=== PATIENT | male | born 1975 | race Caucasian/White ===

== ENCOUNTER 2024-03-11 09:05 | Outpatient (OUT) | payer OTHER, SELFPAY ==
[2024-03-11 10:21] LABS: Basophils Absolute Auto 0.1 10^3/uL (0.0-0.1); Basophils Percent Auto 0.7 % (0.2-2.0); Eosinophils Absolute Auto 0.1 10^3/uL (0.0-0.7); Eosinophils Percent Auto 1.8 % (0.9-7.0); Hematocrit 43.3 % (42.0-54.0); Hemoglobin 14.9 g/dL (14.0-18.0); Immature Granulocytes Abs Auto 0.01 10^3/uL (0.00-0.03); Immature Granulocytes Pct Auto 0.1 % (0.0-0.5); Lymphocytes Absolute Auto 2.9 10^3/uL (1.2-3.8); Lymphocytes Percent Auto 40.7 % (20.5-60.0); Mean Corpuscular HGB Conc 34.4 g/dL (29.9-35.2); Mean Corpuscular Hemoglobin 30.5 pg (25.9-34.0); Mean Corpuscular Volume 88.7 fL (80.0-94.0); Mean Platelet Volume 8.8 fL (9.5-13.5); Monocytes Absolute Auto 0.5 10^3/uL (0.3-0.8); Monocytes Percent Auto 6.7 % (1.7-12.0); Neutrophils Absolute Auto 3.5 10^3/uL (1.4-6.5); Platelet Count 238 10^3/uL (150-450); Red Blood Count 4.88 10^6/uL (4.70-6.10); Red Cell Distribution Width 12.2 % (11.0-15.0)
[2024-03-11 11:04] LABS: Erythrocyte Sedimentation Rate 2 mm/hr (<=20)
[2024-03-11 11:10] LABS: Creatinine Urine Random 181.81 mg/dL (20.00-300.00); Microalbum Creatinine Ratio Ur 7.1 mg/g (0.0-29.9); Microalbumin Urine Random <1.3 mg/dL (<=30.0)
[2024-03-11 12:01] LABS: Prostate Specific Antigen Dx 0.82 ng/mL (<=4.00)
[2024-03-11 12:35] LABS: Alanine Aminotransferase 56 U/L (16-63); Albumin Globulin Ratio 1.3; Albumin Level 3.9 g/dL (3.4-5.0); Alkaline Phosphatase 62 U/L (46-116); Anion Gap 12.3; Aspartate Amino Transferase 31 U/L (15-37); Bilirubin Total 0.9 mg/dL (0.2-1.0); C Reactive Protein <0.50 mg/dL (<=0.50); Calcium 8.3 mg/dL (8.5-10.1); Carbon Dioxide 27.9 mmol/L (21.0-32.0); Chloride 106 mmol/L (98-107); Chol HDL Ratio 4.3; Cholesterol 176 mg/dL (<=200); Estimated GFR (African America >60 (>=60); Estimated GFR (Non-African Ame >60 (>=60); Globulin 3.1 g/dL; Glucose 97 mg/dL (74-106); HDL Cholesterol 41 mg/dL (40-60); LDL Cholesterol Calculated 126.4 mg/dL; Potassium 4.2 mmol/L (3.5-5.1); Sodium 142 mmol/L (136-145); Triglycerides 43 mg/dL (<=150); Uric Acid 5.4 mg/dL (3.5-7.2); VLDL CHOLESTEROL 8.6 mg/dL
[2024-03-11 12:41] LABS: Bilirubin Urine NEGATIVE (NEGATIVE); Blood Urine NEGATIVE (NEGATIVE); Clarity Urine CLEAR (CLEAR); Color Urine YELLOW (YELLOW); Glucose Urine UA NEGATIVE (NEGATIVE); Ketones Urine NEGATIVE (NEGATIVE); Leukocyte Esterase Urine NEGATIVE (NEGATIVE); Nitrite Urine NEGATIVE (NEGATIVE); Protein Urine NEGATIVE (NEG/TRACE); Specific Gravity Urine >=1.030 (1.005-1.025); Urobilinogen Urine 0.2 EU/dL (0.2-1.0); pH Urine 5.5 (5.0-9.0)
[2024-03-11 13:02] LABS: Bacteria Urine TRACE #/HPF (NONE SEEN); Cast Seen? NONE SEEN #/LPF (NONE SEEN); Crystals Seen? None Seen #/HPF (None Seen); Mucus Urine NONE SEEN (NONE SEEN); RBC Urine 0-2 #/HPF (0-2); Squamous Epithelial Cell Urine RARE #/LPF (NONE/RARE); WBC Urine 0-2 #/HPF (NONE SEEN)
[2024-03-12 08:10] LABS: Rheumatoid Factor (RF) <10.0 IU/mL (<14.0)
[2024-03-13 12:08] LABS: ANA Direct Negative (Negative)
[2024-03-13 13:08] LABS: Anti-CCP Ab, IgG/IgA 5 units (0-19)
== END 2024-03-11 09:06 | disposition home or self-care (01) ==
PROVIDERS: PCP Internal Medicine; Visit Provider Internal Medicine
DX: Z00.00 Encounter for general adult medical examination without abnormal findings (principal); Z12.5 Encounter for screening for malignant neoplasm of prostate; M79.641 Pain in right hand; M79.642 Pain in left hand; I10 Essential (primary) hypertension
CPT/HCPCS: 36415; 80053; 80061; 81001; 82043; 82570; 84153; 84550; 85025; 85652; 86038; 86140; 86200; 86431

== ENCOUNTER 2024-05-08 10:17 | Outpatient (OUT) | payer OTHER, SELFPAY ==
--- OUTSIDE RECORDS SUMMARY | 2024-05-08 10:40 | XMS_ITS | CCD ---
Author Organization [facility] Care Team Providers Care Qa Tester Name Role Phone Heath Russo Attending Provider Nilda Vincent Primary Care Provider [phone] CLAUDINE [place] Consulting Unavailable THOMAS ROMO Admitting Unavailable MADELYN JADE Primary Care Unavailable THOMAS ROMO Attending Unavailable NILDA JOENS Consulting Unavailable HEATH RUSSO Admitting Unavailable NILDA VINCENT Primary Care Unavailable HEATH RUSSO Attending Unavailable HEATH RUSSO Consulting Unavailable NILDA VINCENT Admitting Unavailable NILDA VINCENT Attending Unavailable NILDA VINCENT Consulting Unavailable ANNA MARIE SUMMERS Attending Unavailable JACQUELINE GONSALES Primary Care Unavailable ANNA MARIE SUMMERS Admitting Unavailable MADELYN JADE Consulting Unavailable ANALY BAI Unavailable MD Nilda Vincent Primary Care Provider [phone] MD Lenny Rod Attending Provider NILDA VINCENT Attending Unavailable LNENY DUKE Attending Unavailable CASSANDRA MERINO Referring Unavailable LENNY DUKE Attending Unavailable Lenny Rod Attending Unavailable Nilda Vincent Primary Care Unavailable Lenny Rod Admitting Unavailable Lenny Rod Admitting Unavailable Lenny Rod Attending Unavailable Nilda Vincent Primary Care Unavailable Unavailable Unavailable Unavailable Medications Current Medications Medication Drug Class(es) Dates Sig (Normalized) Sig (Original) acetaminophen 325 mg / HYDROcodone bitartrate 5 mg oral tablet (1 source) Opioid Agonist Start: 03-30-2024 take 1 tablet by mouth every six hours Hydrocodone-Acet aminophen Active 1 TAB PO Q6H 28 7 March 30, 2024 lisinopril 10 mg oral tablet (3 sources) Angiotensin Converting Enzyme Inhibitor Start: 03-18-2020 take 10 mg by mouth once daily in the morning Lisinopril Active 10 MG PO Every morning March 18, 2020 12:00am Problems Active Problems Problem Classification Problem Date Documented Da te Episodic/Chronic Abdominal hernia (1 source) Umbilical hernia with obstruction, without gangrene; Translations: [Umbilical hernia with obstruction, without gangrene] Onset: 03-30-2024 Episodic Adverse effects of medical drugs (1 source) Adverse effect of other qwoa-qsnchz-wblj drugs, initial encounter; Translations: [ADVRS EFF OTH ENKN-NST-SOIX RX INIT] Onset: 11-07-2019 Essential hypertension (1 source) Essential (primary) hypertension; Translations: [ESSENTIAL PRIMARY HYPERTENSION] Onset: 03-29-2020 Chronic Other upper respiratory infections (1 source) Chronic sinusitis, unspecified; Translations: [CHRONIC SINUSITIS UNSPECIFIED] Onset: 11-07-2019 Chronic Residual codes; unclassified (3 sources) Family history of cancer of colon; Translations: [Family history of malignant neoplasm of digestive organs] 09-15-2023 Episodic Residual codes; unclassified (1 source) Family history of malignant neoplasm of digestive organs; Translations: [Family history of colon cancer requiring screening colonoscopy] Episodic Unclassified (1 source) Myalgia, unspecified site; Translations: [MYALGIA UNSPECIFIED SITE] Onset: 11-15-2019 Past or Other Problems Problem Classification Problem Date Documented Da te Episodic/Chronic Genitourinary symptoms and ill-defined conditions (1 source) Nocturia; Translations: [NOCTURIA] Onset: 03-29-2020 Episodic Headache; including migraine (1 source) Headache; Translations: [HEADACHE] Onset: 11-15-2019 Episodic Immunizations and screening for infectious disease (4 sources) Encounter for screening for other viral diseases; Translations: [ENC SCREENING FOR OTH VIRAL DZ] Onset: 03-12-2020 Episodic Malaise and fatigue (1 source) Weakness; Translations: [WEAKNESS] Onset: 11-15-2019 Episodic Other aftercare (1 source) Other mcfp (current) drug therapy; Translations: [OTH FPC CURRENT DRUG THERAPY] Onset: 11-15-2019 Episodic Other upper respiratory disease (4 sources) Nasal congestion; Translations: [NASAL CONGESTION] Onset: 11-12-2019 Episodic Results Test Name Value Interpretation Reference Range [facility] ECG 12 lead ECGon 03-22-2024 ECG 12 lead ECG [facility] [place] [address] Electrocardiograph Report Signed Patient: Pérez Merritt MR#: [id number] 54 : 1975 Acct:[id number] Age/Sex: 49 / M ADM Date: 03/22/24 Loc: PS Room: Type: [facility] Attending Dr: Lenny Rod MD Ordering Provider: Lenny Rod MD Date of Service: 03/22/24 ECG/ECG 12 lead ECG: surgery 03/30/24 Copies to: Test Reason : Blood Pressure : / mmHG Vent. Rate : 069 BPM Atrial Rate : 069 BPM P-R Int : 188 ms QRS Dur : 092 ms QT Int : 388 ms P-R-T Axes : 069 015 038 degrees QTc Int : 415 ms Normal sinus rhythm Normal ECG No previous ECGs available Confirmed by [facility] ([id number] on 03/22/2024 1:30:39 PM Referred By: MELISA ROD Electronically Signed By:ALTON TOUSSAINT MD [facility] Transcribed By: [facility] Signed By Alton Toussaint MD, [facility] 03/22/24 1330 Normal [facility] COVID-19 PCRon 03-14-2020 SARS-CoV-2, DINO Not Detected Normal Not Detected [facility] Comment on above: Result Comment: This test was developed and its performance characteristics determined by [employer]. This test has not been FDA cleared or approved. This test has been authorized by FDA under an Emergency Use Authorization (EUA). This test is only authorized for the duration of time the declaration that circumstances exist justifying the authorization of the emergency use of in vitro diagnostic tests for detection of SARS-CoV-2 virus and/or diagnosis of COVID-19 infection under section 564(b)(1) of the Act, 21 U.S.C. 360bbb-3(b)(1), unless the authorization is terminated or revoked sooner. When diagnostic testing is negative, the possibility of a false negative result should be considered in the context of a patient's recent exposures and the presence of clinical signs and symptoms consistent with COVID-19. An individual without symptoms of COVID-19 and who is not shedding SARS-CoV-2 virus would expect to have a negative (not detected) result in this assay. Performed By: #### C VDPCR #### [facility] [address] [place] [address] Eri Kiera CBC AUTO DIFFon 03-12-2020 Basophils (Bld) [#/Vol] 0.1 103/ul Normal 0.0-0.1 [facility] Comment on above: Performed By: #### M PACHECO #### [facility] [address] [place], [place] [id number] Eri Kiera Basophils/100 WBC (Bld) 0.6 % Normal 0.2-2.0 [facility] Comment on above: Performed By: #### M PACHECO #### [facility] [address] [place], [place] [phone] Eri Kiera Eosinophils (Bld) [#/Vol] 0.1 103/ul Normal 0.0-0.7 [facility] Comment on above: Performed By: #### M PACHECO #### [facility] [address] [place] [address] Eri Kiera Eosinophils/100 WBC (Bld) 1.2 % Normal 0.9-7.0 [facility] Comment on above: Performed By: #### M PACHECO #### [facility] [address] [place] [address] Eri Kiera Erythrocyte distribution width (RBC) [Ratio] 11.9 % Normal 11.0-15.0 [facility] Comment on above: Performed By: #### M PACHECO #### [facility] [address] [place] [address] Eri Kiera Hematocrit (Bld) [Volume fraction] 44.3 % Normal 42.0-54.0 [facility] Comment on above: Performed By: #### M PACHECO #### [facility] [address] [place] [address] Eri Kiera Hemoglobin (Bld) [Mass/Vol] 15.8 g/dL Normal 14.0-18.0 [facility] Comment on above: Performed By: #### M PACHECO #### [facility] [address] [id number] Eri Kiera IG # 0.03 10e3/ul Normal 0.00-0.03 [facility] Comment on above: Performed By: #### M PACHECO #### [facility] [address] [id number] Eri Kiera IG % 0.3 % Normal 0.0-0.5 [facility] Comment on above: Performed By: #### M PACHECO #### [facility] [address] [phone] Eri Kiera Lymphocytes (Bld) [#/Vol] 3.2 103/ul Normal 1.2-3.8 [facility] Comment on above: Performed By: #### M PACHECO #### [facility] [address] [place], [place] [phone] Eri Kiera Lymphocytes/100 WBC (Bld) 33.0 % Normal 20.5-60.0 [facility] Comment on above: Performed By: #### M PACHECO #### [facility] [address] [place], [place] [phone] Eri Kiera MANUAL DIFF REQ NO Normal [facility] Comment on above: Performed By: #### M PACHECO #### [facility] [address] [place], [place] [phone] Eri Kiera MCH (RBC) [Entitic mass] 31.2 pg Normal 25.9-34.0 [facility] Comment on above: Performed By: #### M PACHECO #### [facility] [address] [place], [place] [phone] Eri Kiera MCHC (RBC) [Mass/Vol] 35.7 g/dL Critically high 29.9-35.2 [facility] Comment on above: Performed By: #### M PACHECO #### [facility] [address] [place], [place] [phone] Eri Kiera MCV (RBC) [Entitic vol] 87.4 fL Normal 80.0-94.0 [facility] Comment on above: Performed By: #### M PACHECO #### [facility] [address] [place], [place] [address] Eri Kiera Monocytes (Bld) [#/Vol] 0.7 103/ul Normal 0.3-0.8 [facility] Comment on above: Performed By: #### M PACHECO #### [facility] [address] [place], [place] [address] Eri Kiera Monocytes/100 WBC (Bld) 7.0 % Normal 1.7-12.0 [facility] Comment on above: Performed By: #### M PACHECO #### [facility] [address] [place], [place] [address] Eri Kiera Neutrophils (Bld) [#/Vol] 5.6 103/ul Normal 1.4-6.5 [facility] Comment on above: Performed By: #### M PACHECO #### [facility] [address] [place] [address] Eri Kiera Neutrophils/100 WBC (Bld) 57.9 % Normal 43.0-75.0 [facility] Comment on above: Performed By: #### M PACHECO #### [facility] [address] [place], [place] [address] Eri Kiera Platelet mean volume (Bld) [Entitic vol] 8.6 fL Critically low 9.5-13.5 [facility] Comment on above: Performed By: #### M PACHECO #### [facility] [address] [place] [address] Eri Kiera Platelets (Bld) [#/Vol] 237 103/ul Normal 150-450 [facility] Comment on above: Performed By: #### M PACHECO #### [facility] [address] [place], [place] [address] Eri Kiera RBC (Bld) [#/Vol] 5.07 106/ul Normal 4.70-6.10 [facility] Comment on above: Performed By: #### M PACHECO #### [facility] [address] [place], [place] [address] Eri Kiera WBC (Bld) [#/Vol] 9.8 103/ul Normal 4.0-11.0 [facility] Comment on above: Performed By: #### M PACHECO #### [facility] [address] [place], [place] [address] Eri Kiera LIPID PROFILEon 03-12-2020 CHOL-HDL RATIO NORM SEE BELOW Normal [facility] Comment on above: Result Comment: 3.3 - 4.4 LOW RISK 4.4 - 7.1 AVERAGE RISK 7.1 - 11.0 MODERATE RISK >11.0 HIGH RISK Performed By: #### P SAD, CMP, LIPID #### [facility] [address] [phone] Eri Kiera Cholesterol [Mass/Vol] 176 mg/dL Normal <=200 [facility] Comment on above: Performed By: #### P SAD, CMP, LIPID #### [facility] [address] [phone] Eri Kiera Cholesterol in HDL [Mass/Vol] 33 mg/dL Normal [facility] Comment on above: Performed By: #### P SAD, CMP, LIPID #### [facility] [address] [phone] Eri Kiera Cholesterol in HDL [Mass/Vol] > or = 60 mg/dl - LOW CARDIOVASCULAR RISK <40 mg/dl - HIGH CARDIOVASCULAR RISK Normal [facility] Comment on above: Performed By: #### P SAD, CMP, LIPID #### [facility] [address] [place], [place] [address] Eri Kiera Cholesterol in LDL [Mass/Vol] 105.8 mg/dL Normal [facility] Comment on above: Performed By: #### P SAD, CMP, LIPID #### [facility] [address] [place], [place] [address] Eri Kiera Cholesterol in LDL [Mass/Vol] SEE BELOW Normal [facility] Comment on above: Result Comment: <100 mg/dl OPTIMAL 100 - 129 mg/dl NEAR OR ABOVE OPTIMAL 130 - 159 mg/dl BORDERLINE HIGH 160 - 189 mg/dl HIGH >190 mg/dl VERY HIGH Performed By: #### P SAD, CMP, LIPID #### [facility] [address] [phone] Eri Kiera Cholesterol.total/ Cholesterol in HDL [Mass ratio] 5.3 {ratio} Normal [facility] Comment on above: Performed By: #### P SAD, CMP, LIPID #### [facility] [address] [phone] Eri Qureshi Triglyceride [Mass/Vol] 186 mg/dL Critically high <=150 [facility] Comment on above: Performed By: #### P SAD, CMP, LIPID #### [facility] [address] [address] Eri Qureshi VLDL CALC 37.2 mg/dL Normal [facility] Comment on above: Performed By: #### P SAD, CMP, LIPID #### [facility] [address] [phone] Eri Qureshi MICROALB CREAT RATIO RANDOMo n 03-12-2020 mALB <1.3 Normal <=30.0 [facility] Comment on above: Performed By: #### M CRR #### [facility] [address] [place] [address] Eri Qureshi MALB CR RATIO 6.3 MG/G Normal 0.0-29.9 [facility] Comment on above: Performed By: #### M CRR #### [facility] [address] [place] [address] Eri Qureshi MALB CR RATIO RANGE SEE BELOW Normal [facility] Comment on above: Result Comment: NO M ICROALBUMIN 0-29 MG/G CLINICAL MICROALBUMINURIA 30-300 MG/G MACROALBUMINURIA >300 MG/G Performed By: #### M CRR #### [facility] [address] [place] [address] Eri Qureshi URINE CREAT 206.91 mg/dL Normal 20.00-300.00 [facility] Comment on above: Performed By: #### M CRR #### [facility] [address] [place], [place] [phone] Eri Jiménezen PROF 14(COMP METB)on 020 Albumin [Mass/Vol] 5.0 g/dL Normal 3.5-5.0 [facility] Comment on above: Performed By: #### P SAD, CMP, LIPID #### [facility] [address] [place], [place] [address] Eri Kiera Albumin/Globulin [Mass ratio] 1.5 {ratio} Normal [facility] Comment on above: Performed By: #### P SAD, CMP, LIPID #### [facility] [address] [place], [place] [address] Eri Kiera ALP [Catalytic activity/Vol] 57 U/L Normal 38-126 [facility] Comment on above: Performed By: #### P SAD, CMP, LIPID #### [facility] [address] [phone] Eri Kiera ALT [Catalytic activity/Vol] 60 U/L Normal 21-72 [facility] Comment on above: Performed By: #### P SAD, CMP, LIPID #### [facility] [address] [phone] Eri Kiera Anion gap [Moles/Vol] 12.3 mmol/L Normal [facility] Comment on above: Performed By: #### P SAD, CMP, LIPID #### [facility] [address] [phone] Eri Kiera AST [Catalytic activity/Vol] 39 U/L Normal 17-59 [facility] Comment on above: Performed By: #### P SAD, CMP, LIPID #### [facility] [address] [place], [place] [address] Eri Kiera Bilirubin Ql (U) 0.8 mg/dL Normal 0.2-1.3 [facility] Comment on above: Performed By: #### P SAD, CMP, LIPID #### [facility] [address] [place], [place] [address] Eri Kiera Calcium [Mass/Vol] 9.2 mg/dL Normal 8.4-10.2 [facility] Comment on above: Performed By: #### P SAD, CMP, LIPID #### [facility] [address] [phone] Eri Kiera Chloride [Moles/Vol] 104 mmol/L Normal 98-107 [facility] Comment on above: Performed By: #### P SAD, CMP, LIPID #### [facility] [address] [address] Eri Kiera CO2 [Moles/Vol] 28.8 mmol/L Normal 22.0-30.0 [facility] Comment on above: Performed By: #### P SAD, CMP, LIPID #### [facility] [address] [address] Eri Kiera Creatinine [Mass/Vol] 1.06 mg/dL Normal 0.66-1.25 [facility] Comment on above: Performed By: #### P SAD, CMP, LIPID #### [facility] [address] [address] Eri Kiera EGFR-AF TUNISIAN >60 Normal >=60 [facility] Comment on above: Performed By: #### P SAD, CMP, LIPID #### [facility] [address] [address] Eri Kiera EGFR-NON AF TUNISIAN >60 Normal >=60 [facility] Comment on above: Performed By: #### P SAD, CMP, LIPID #### [facility] [address] [address] Eri Kiera Globulin (S) [Mass/Vol] 3.3 g/dL Normal [facility] Comment on above: Performed By: #### P SAD, CMP, LIPID #### [facility] [address] [address] Eri Kiera Glucose [Mass/Vol] 77 mg/dL Normal 74-106 [facility] Comment on above: Performed By: #### P SAD, CMP, LIPID #### [facility] [address] [address] Eri Kiera Potassium [Moles/Vol] 4.1 mmol/L Normal 3.4-5.0 [facility] Comment on above: Performed By: #### P SAD, CMP, LIPID #### [facility] [address] [address] Eri Kiera Protein [Mass/Vol] 8.3 g/dL Critically high 6.1-8.2 [facility] [place] [facility] Comment on above: Performed By: #### P SAD, CMP, LIPID #### [facility] [address] [address] Eri Kiera Sodium [Moles/Vol] 141 mmol/L Normal 137-145 [facility] Comment on above: Performed By: #### P SAD, CMP, LIPID #### [facility] [address] [address] Eri Kiera Urea nitrogen [Mass/Vol] 21.0 mg/dL Critically high 9.0-20.0 [facility] Comment on above: Performed By: #### P SAD, CMP, LIPID #### [facility] [address] [place] [address] Eri Kiera Urea nitrogen/Creatinin e [Mass ratio] 19.8 mg/mg Normal [facility] Comment on above: Performed By: #### P SAD, CMP, LIPID #### [facility] [address] [place] [address] Eri Kiera UA RANDOM W/MICROSCOPICon Bacteria LM.HPF (Urine sed) [#/Area] TRACE Normal NONE SEEN [facility] Comment on above: Performed By: #### U AMIC #### [facility] [address] [place] [address] Eri Kiera Bilirubin [Mass/Vol] Negative Normal NEGATIVE [facility] Comment on above: Performed By: #### U AMIC #### [facility] [address] [place] [address] Eri Kiera BLOOD Negative Normal NEGATIVE [facility] Comment on above: Performed By: #### U AMIC #### [facility] [address] [place] [address] Eri Kiera CAST NONE SEEN Normal NONE SEEN [facility] Comment on above: Performed By: #### U AMIC #### [facility] [address] [place] [address] Eri Kiera Clarity (U) CLEAR Normal [facility] Comment on above: Performed By: #### U AMIC #### [facility] [address] [place] [address] Eri Kiera Color (U) YELLOW Normal YELLOW [facility] Comment on above: Performed By: #### U AMIC #### [facility] [address] [phone] Eri Kiera Crystals LM Nom (Urine sed) NONE SEEN Normal NONE SEEN [facility] Comment on above: Performed By: #### U AMIC #### [facility] [address] [place], [place] [address] Eri Kiera Epithelial cells LM.HPF (Urine sed) [#/Area] RARE Normal [facility] Comment on above: Performed By: #### U AMIC #### [facility] [address] [phone] Eri Kiera Glucose [Mass/Vol] Negative Normal NEGATIVE [facility] Comment on above: Performed By: #### U AMIC #### [facility] [address] [address] Eri Kiera Ketones Ql (U) Negative Normal NEGATIVE [facility] Comment on above: Performed By: #### U AMIC #### [facility] [address] [id number] Eri Kiera MUCOUS LARGE Normal NONE SEEN [facility] Comment on above: Performed By: #### U AMIC #### [facility] [address] [phone] Eri Kiera Nitrite Ql (U) Negative Normal NEGATIVE [facility] Comment on above: Performed By: #### U AMIC #### [facility] [address] [phone] Eri Kiera pH (Bld) 5.5 Normal 5-9 [facility] Comment on above: Performed By: #### U AMIC #### [facility] [address] [phone] Eri Kiera Protein [Mass/Vol] Negative Normal [facility] Comment on above: Performed By: #### U AMIC #### [facility] [address] [phone] Eri Kiera RBC (Bld) [#/Vol] 0-2 Normal 0-2 [facility] Comment on above: Performed By: #### U AMIC #### [facility] [address] [place], [place] [address] Eri Kiera SPEC GRAVITY >=1.030 Normal 1.005-<=1.025 [facility] Comment on above: Performed By: #### U AMIC #### [facility] [address] [place], [place] [address] Eri Kiera Urobilinogen Qn (U) 0.2 EU/dl Normal [facility] Comment on above: Performed By: #### U AMIC #### [facility] [address] [place], [place] [address] Eri Kiera WBC (Bld) [#/Vol] Negative Normal NEGATIVE [facility] Comment on above: Performed By: #### U AMIC #### [facility] [address] [phone] Eri Kiera WBC (Bld) [#/Vol] 0-2 Normal NONE SEEN [facility] Comment on above: Performed By: #### U AMIC #### [facility] [address] [phone] Eri Kiera CBC AUTO DIFFon 11-12-2019 Basophils (Bld) [#/Vol] 0.0 103/ul Normal 0.0-0.1 [facility] Comment on above: Performed By: #### C BC #### [facility] [address] [place] [address] Eri Kiera Basophils/100 WBC (Bld) 0.7 % Normal 0.2-2.0 [facility] Comment on above: Performed By: #### C BC #### [facility] [address] [place], [place] [address] Eri Kiera Eosinophils (Bld) [#/Vol] 0.1 103/ul Normal 0.0-0.7 [facility] Comment on above: Performed By: #### C BC #### [facility] [address] [place], [place] [address] Eri Kiera Eosinophils/100 WBC (Bld) 2.5 % Normal 0.9-7.0 [facility] Comment on above: Performed By: #### C BC #### [facility] [address] [place] [address] Eri Kiera Erythrocyte distribution width (RBC) [Ratio] 12.1 % Normal 11.0-15.0 [facility] Comment on above: Performed By: #### C BC #### [facility] [address] [place] [address] Eri Kiera Hematocrit (Bld) [Volume fraction] 43.2 % Normal 42.0-54.0 [facility] Comment on above: Performed By: #### C BC #### [facility] [address] [place] [address] Eri Kiera Hemoglobin (Bld) [Mass/Vol] 15.2 g/dL Normal 14.0-18.0 [facility] [facility] Comment on above: Performed By: #### C BC #### [facility] [address] [place] [address] Eri Kiera IG # 0.02 10e3/ul Normal 0.00-0.03 [facility] Comment on above: Performed By: #### C BC #### [facility] [address] [place] [address] Eri Kiera IG % 0.5 % Normal 0.0-0.5 [facility] Comment on above: Performed By: #### C BC #### [facility] [address] [place] [address] Eri Kiera Lymphocytes (Bld) [#/Vol] 1.0 103/ul Critically low 1.2-3.8 [facility] Comment on above: Performed By: #### C BC #### [facility] [address] [place] [address] Eri Kiera Lymphocytes/100 WBC (Bld) 23.5 % Normal 20.5-60.0 [facility] Comment on above: Performed By: #### C BC #### [facility] [address] [place] [address] Eri Kiera MANUAL DIFF REQ NO Normal [facility] Comment on above: Performed By: #### C BC #### [facility] [address] [place] [address] Eri Qureshi MCH (RBC) [Entitic mass] 30.8 pg Normal 25.9-34.0 [facility] Comment on above: Performed By: #### C BC #### [facility] [address] [place], [place] [address] Eri Qureshi MCHC (RBC) [Mass/Vol] 35.2 g/dL Normal 29.9-35.2 [facility] Comment on above: Performed By: #### C BC #### [facility] [address] [place], [place] [address] Erijael Qureshi MCV (RBC) [Entitic vol] 87.6 fL Normal 80.0-94.0 [facility] Comment on above: Performed By: #### C BC #### [facility] [address] [place], [place] [id number] Eri Kiera Monocytes (Bld) [#/Vol] 0.3 103/ul Normal 0.3-0.8 [facility] Comment on above: Performed By: #### C BC #### [facility] [address] [place], [place] [address] Erijael Jiménezen Monocytes/100 WBC (Bld) 8.1 % Normal 1.7-12.0 [facility] Comment on above: Performed By: #### C BC #### [facility] [address] [place] [address] Eri Kiera Neutrophils (Bld) [#/Vol] 2.6 103/ul Normal 1.4-6.5 [facility] Comment on above: Performed By: #### C BC #### [facility] [address] [place], [place] [address] Eri Kiera Neutrophils/100 WBC (Bld) 64.7 % Normal 43.0-75.0 [facility] Comment on above: Performed By: #### C BC #### [facility] [address] [place], [place] [address] Erijael Qureshi Platelet mean volume (Bld) [Entitic vol] 8.3 fL Critically low 9.5-13.5 [facility] Comment on above: Performed By: #### C BC #### [facility] [address] [place], [place] [address] Eri Kiera Platelets (Bld) [#/Vol] 119 103/ul Critically low 150-450 [facility] Comment on above: Performed By: #### C BC #### [facility] [address] [place], [place] [address] Eri Kiera RBC (Bld) [#/Vol] 4.93 106/ul Normal 4.70-6.10 [facility] Comment on above: Performed By: #### C BC #### [facility] [address] [place] [id number] Eri Kiera WBC (Bld) [#/Vol] 4.1 103/ul Normal 4.0-11.0 [facility] Comment on above: Performed By: #### C BC #### [facility] [address] [place], [place] [id number] Eri Kiera ER URINE PROFILEon 0 Bilirubin [Mass/Vol] Negative Normal NEGATIVE [facility] Comment on above: Performed By: #### M PACHECO #### [facility] [address] [place], [place] [id number] Eri Kiera BLOOD Negative Normal NEGATIVE [facility] Comment on above: Performed By: #### M PACHECO #### [facility] [address] [place], [place] [id number] Eri Kiera Clarity (U) CLEAR Normal [facility] Comment on above: Performed By: #### M PACHECO #### [facility] [address] [place] [address] Eri Kiera Color (U) YELLOW Normal YELLOW [facility] Comment on above: Performed By: #### M PACHECO #### [facility] [address] [place], [place] [id number] Eri Kiera ERUAHD A micrscopic examination will be performed if indicated. Normal [facility] Comment on above: Performed By: #### M PACHECO #### [facility] [address] [place], [place] [id number] Eri Kiera Glucose [Mass/Vol] Negative Normal NEGATIVE [facility] Comment on above: Performed By: #### M PACHECO #### [facility] [address] [place] [id number] Eri Kiera Ketones Ql (U) Negative Normal NEGATIVE [facility] Comment on above: Performed By: #### M PACHECO #### [facility] [address] [place] [id number] Eri Kiera Nitrite Ql (U) Negative Normal NEGATIVE [facility] Comment on above: Performed By: #### M PACHECO #### [facility] [address] [place] [address] Eri Kiera pH (Bld) 7.0 Normal 5-9 [facility] Comment on above: Performed By: #### M PACHECO #### [facility] [address] [place] [address] Eri Kiera Protein (U) [Mass/Vol] Negative Normal [facility] Comment on above: Performed By: #### M PACHECO #### [facility] [address] [place] [address] Eri Kiera SPEC GRAVITY 1.015 Normal 1.005-<=1.025 [facility] Comment on above: Performed By: #### M PACHECO #### [facility] [address] [place] [address] Eri Kiera UR MICRO IND NOT INDICATED Normal [facility] Comment on above: Performed By: #### M PACHECO #### [facility] [address] [place] [address] Eri Kiera Urobilinogen Qn (U) 0.2 EU/dl Normal [facility] Comment on above: Performed By: #### M PACHECO #### [facility] [address] [place], [place] [id number] Eri Kiera WBC (Bld) [#/Vol] Negative Normal NEGATIVE [facility] Comment on above: Performed By: #### M PACHECO #### [facility] [address] [place], [place] [address] Eri Kiera INFLUENZA A AND B AGon 11-12 INFLUANEGH SEE BELOW Normal [facility] Comment on above: Result Comment: Nega tive for Flu A protein angiten. Infection due to Flu A cannot be ruled out. Flu A angiten in the sample may be below the detection limit of the test. Performed By: #### M PACHECO #### [facility] [address] [place] [address] Eri Qureshi INFLUBNEGH SEE BELOW Normal [facility] Comment on above: Result Comment: Nega tive for Flu B protein antigen. Infection due to Flu B cannot be ruled out. Flu B antigen in the sample may be below the detection limit of the test. Performed By: #### M PACHECO #### [facility] [address] [place] [address] Eri Qureshi INFLUENZA A AG Negative Normal NEGATIVE SEE COMMENT [facility] Comment on above: Performed By: #### M PACHECO #### [facility] [address] [place] [address] Eri Qureshi INFLUENZA B AG Negative Normal NEGATIVE SEE COMMENT [facility] Comment on above: Performed By: #### M PACHECO #### [facility] [address] [place] [address] Eri Qureshi INTERNAL CONTROLS Within Normal Limits Normal Wi thin Normal Limits [facility] Comment on above: Performed By: #### M PACHECO #### [facility] [address] [place] [address] Eri Qureshi MONOon 11-12-2019 Monocytes (Bld) [#/Vol] Negative Normal NEGATIVE [facility] Comment on above: Performed By: #### M PACHECO #### [facility] [address] [place] [address] Eri Kiera PROF 14(COMP METB)on 020 Albumin [Mass/Vol] 4.0 g/dL Normal 3.5-5.0 [facility] Comment on above: Performed By: #### M PACHECO #### [facility] [address] [place], [place] [id number] Eri Qureshi Albumin/Globulin [Mass ratio] 1.1 {ratio} Normal [facility] Comment on above: Performed By: #### M PACHECO #### [facility] [address] [place] [id number] Eri Kiera ALP [Catalytic activity/Vol] 53 U/L Normal 38-126 [facility] Comment on above: Performed By: #### M PACHECO #### [facility] [address] [place], [place] [id number] Eri Kiera ALT [Catalytic activity/Vol] 61 U/L Normal 21-72 [facility] Comment on above: Performed By: #### M PACHECO #### [facility] [address] [place] [address] Eri Kiera Anion gap [Moles/Vol] 16.4 mmol/L Normal [facility] Comment on above: Performed By: #### M PACHECO #### [facility] [address] [place] [address] Eri Kiera AST [Catalytic activity/Vol] 36 U/L Normal 17-59 [facility] Comment on above: Performed By: #### M PACHECO #### [facility] [address] [place] [address] Eri Kiera Bilirubin Ql (U) 0.8 mg/dL Normal 0.2-1.3 [facility] Comment on above: Performed By: #### M PACHECO #### [facility] [address] [place], [place] [id number] Eri Kiera Calcium [Mass/Vol] 8.6 mg/dL Normal 8.4-10.2 [facility] Comment on above: Performed By: #### M PACHECO #### [facility] [address] [place] [address] Eri Kiera Chloride [Moles/Vol] 101 mmol/L Normal 98-107 [facility] Comment on above: Performed By: #### M PACHECO #### [facility] [address] [place], [place] [address] Eri Kiera CO2 [Moles/Vol] 24.0 mmol/L Normal 22.0-30.0 [facility] Comment on above: Performed By: #### M PACHECO #### [facility] [address] [place], [place] [address] Eri Kiera Creatinine [Mass/Vol] 1.44 mg/dL Critically high 0.66-1.25 [facility] Comment on above: Performed By: #### M PACHECO #### [facility] [address] [place], [place] [address] Eri Kiera EGFR-AF TUNISIAN >60 Normal >=60 [facility] Comment on above: Performed By: #### M PACHECO #### [facility] [address] [place], [place] [address] Eri Kiera EGFR-NON AF TUNISIAN 53 mL/min/1.73m2 Critically low >=60 [facility] Comment on above: Performed By: #### M PACHECO #### [facility] [address] [place] [id number] Eri Kiera Globulin (S) [Mass/Vol] 3.5 g/dL Normal [facility] Comment on above: Performed By: #### M PACHECO #### [facility] [address] [place], [place] [address] Eri Kiera Glucose [Mass/Vol] 99 mg/dL Normal 74-106 [facility] Comment on above: Performed By: #### M PACHECO #### [facility] [address] [place], [place] [address] Eri Kiera Potassium [Moles/Vol] 4.4 mmol/L Normal 3.4-5.0 [facility] Comment on above: Performed By: #### M PACHECO #### [facility] [address] [place], [place] [address] Eri Kiera Protein [Mass/Vol] 7.5 g/dL Normal 6.1-8.2 [facility] Comment on above: Performed By: #### M PACHECO #### [facility] [address] [place], [place] [address] Eri Kiera Sodium [Moles/Vol] 137 mmol/L Normal 137-145 [facility] Comment on above: Performed By: #### M PACHECO #### [facility] [address] [place] [id number] Eri Kiera Urea nitrogen [Mass/Vol] 16.0 mg/dL Normal 9.0-20.0 [facility] Comment on above: Performed By: #### M PACHECO #### [facility] [address] [place], [place] [address] Eri Kiera Urea nitrogen/Creatinin e [Mass ratio] 11.1 mg/mg Normal [facility] Comment on above: Performed By: #### M PACHECO #### [facility] [address] [place], [place] [address] Eri Kiera PROTIMEon 11-12-2019 INR Coag (PPP) [Relative time] 1.03 {INR} Normal [facility] Comment on above: Performed By: #### P TT, PT #### [facility] [address] [place] [address] Eri Kiera PT Coag (PPP) [Time] 10.7 s Normal 9.0-11.6 [facility] Comment on above: Performed By: #### P TT, PT #### [facility] [address] [place], [place] [address] Eri Kiera PT Coag (PPP) [Time] SEE BELOW Normal [facility] Comment on above: Result Comment: TRENA RED INR: 2.0 - 3.0 CONDITIONS NOT LISTED BELOW 2.5 - 3.5 FOR PROSTHETIC HEART VALVE REPLACEMENT 2.5 - 3.5 RECURRENT THROMBOSIS Performed By: #### P TT, PT #### [facility] [address] [place], [place] [address] Eri Kiera PT Coag (PPP) [Time] PLEASE NOTE: NORMAL RANGE CHANGE 06-21-2014 DUE TO REAGENT LOT CHANGE Normal [facility] Comment on above: Performed By: #### P TT, PT #### [facility] [address] [place], [place] [address] Eri Kiera PTTon 11-12-2019 aPTT Coag (Bld) [Time] 28.7 s Normal 22.3-36.2 [facility] Comment on above: Performed By: #### P TT, PT #### [facility] [address] [place], [place] [address] Eri Kiera aPTT Coag (Bld) [Time] PLEASE NOTE: NORMAL RANGE CHANGE 08-28-2015 DUE TO REAGENT LOT CHANGE Normal [facility] Comment on above: Performed By: #### P TT, PT #### [facility] [address] [place], [place] [address] Eri Qureshi TROPONIN - Ion 11-12-2019 Troponin I.cardiac [Mass/Vol] ng/mL Normal <=0.034 [facility] Comment on above: Performed By: #### M PACHECO #### [facility] [address] [place], [place] [address] Eri Qureshi Troponin I.cardiac [Mass/Vol] SEE BELOW Normal [facility] Comment on above: Result Comment: <0.0 34 ng/ml NEGATIVE 0.034-0.119 INDETERMINATE 0.120 AMI CUT OFF Performed By: #### M PACHECO #### [facility] [address] [place] [address] Eri Qureshi TSHon 11-12-2019 TSH Qn 0.530 uIU/mL Normal 0.470-4.680 [facility] Comment on above: Performed By: #### M PACHECO #### [facility] [address] [place] [address] Eri Qureshi TSH Qn SEE BELOW Normal [facility] Comment on above: Result Comment: <0.3 4 UIU/ml HYPERTHYROID 0.34-5.60 UIU/ml EUTHYROID >5.60 UIU/ml HYPOTHYROID Performed By: #### M PACHECO #### [facility] [address] [place], [place] [address] Eri Qureshi Vital Signs Date Time Vital Sign Value Performing Clinician Faci lity 03-30-2024 16:10-0400 Diastolic blood pressure 64 mm[Hg] MD Nilda Vincent Work Phone: [facility] 03-30-2024 16:10-0400 Heart rate 56 /min MD Nilda Vincent Work Phone: [facility] 03-30-2024 16:10-0400 Respiratory rate 16 /min MD Nilda Vincent Work Phone: [facility] 03-30-2024 16:10-0400 SaO2% (BldA) [Mass fraction] 98 % MD Nilda Vincent Work Phone: [facility] 03-30-2024 16:10-0400 Systolic blood pressure 119 mm[Hg] MD Nilda Vincent Work Phone: [facility] 03-30-2024 14:49-0400 Body temperature 97.4 [degF] MD Nilda Vincent Work Phone: [facility] 03-30-2024 14:24-0400 Inhaled oxygen flow rate 8 L/min MD Nilda Vincent Work Phone: [facility] 03-30-2024 13:29-0400 Body mass index (BMI) [Ratio] 29.5 kg/m2 MD Nilda Vincent Work Phone: [facility] 03-30-2024 13:04-0400 Body height 167.64 cm MD Nilda Vincent Work Phone: [facility] 03-30-2024 13:04-0400 Body weight 83 kg MD Nilda Vincent Work Phone: [facility] 03-18-2020 10:31-0400 BP Diastolic 83 mm[Hg] [facility] 03-18-2020 10:31-0400 BP Systolic 130 mm[Hg] [facility] 03-18-2020 10:31-0400 Pulse (Heart Rate) 61 /min [facility] 03-18-2020 10:31-0400 Pulse Oximetry 99 % [facility] 03-18-2020 10:31-0400 Respiratory Rate 20 /min [facility] 03-18-2020 09:10-0400 BMI (Body Mass Index) 26.6 kg/m2 [facility] 03-18-2020 09:10-0400 Body weight 74.84 kg [facility] 03-18-2020 09:10-0400 Height 167.64 cm [facility] Encounters Encounter Date Encounter Type Care Provider Facility Start: 04-10-2024 End: 04-10-2024 ambulatory LENNY ROD V Not Available Start: 03-30-2024 End: 03-30-2024 Admission to same day surgery center MD Nilda Vincent Work Phone: [facility] [place] Start: 03-30-2024 End: 03-30-2024 ambulatory MD Nilda Vincent Work Phone: [facility] Work Phone: Start: 03-22-2024 End: 03-22-2024 ambulatory MD Nilda Vincent Work Phone: [facility] Work Phone: Start: 03-22-2024 Encounter for preprocedural cardiovascular examination Lenny Rod [facility] Start: 03-22-2024 End: 03-22-2024 Patient encounter procedure MD Nilda Vincent Work Phone: [facility] Work Phone: Start: 03-17-2024 End: 03-17-2024 ambulatory LENNY ROD V Not Available Start: 02-17-2024 End: 02-17-2024 ambulatory NILDA VINCENT Not Available Start: 03-18-2020 End: 03-18-2020 Admission to day surgery Heath Russo [facility] Start: 03-12-2020 End: 03-13-2020 Patient encounter procedure HEATH RUSSO Facility:[facility] Start: 11-12-2019 End: 11-12-2019 Patient encounter procedure CLAUDINE COLORADO Facility:[facility] Start: 11-05-2019 End: 11-05-2019 Patient encounter procedure ANNA MARIE SUMMERS Facility:[facility] Procedures Date Procedure Procedure Detail Performing Clinician Start: 03-30-2024 Repair of umbilical hernia MD Nilda Vincent Work Phone: Start: 03-18-2020 Diagnostic endoscopi c examination on colon Heath Russo Start: 03-12-2020 [object Object] CLAUDINE COLORADO Comment on above: Performed By: #### P SAD, CMP, LIPID #### [facility] [address] [place] [address] Eri Kiera Plan of Treatment Date Care Activity Detail Author Start: 03-30-2024 End: 03-30-2024 [facility] Patient Education Abdominal Filiberto ia Repair (DC) Hydrocodone and Acetaminophen Know your Meds [facility] Work Phone: Patient referral [facility] Work Phone: Payers Date Payer Category Payer Self-pay [id number] 2024 Unknown [id number] 1974 Unknown [id number] 2.16.84 [id number] 1974 Unknown [id number] 2.16.84 [id number] 1974 Unknown [id number] 2.16.84 [id number] 1974 Unknown [id number] 2.16.84 [id number] 1974 Unknown [id number] 2.16.84 [id number] 1974 Unknown [id number] 2.16.84 [id number] 1974 Unknown [id number] 2.16.84 [id number] 1959 Private Health Insurance [id number] 1959 Unknown [id number] Unknown Self Pay [id number] Unknown [id number] 2.16.8 [id number] Unknown [id number] 2.16.8 [id number] Social History Date Type Detail Facility Tobacco smoking stat us MSIS Unknown if ever smoked [facility] Start: 1975 Sex Assigned At Male F [facility] Start: 03-22-2024 End: 03-30-2024 Tobacco smoking status NHIS Never smoked tobacco (finding) [facility] Goals Date Patient Goal Desired Activity /State Evaluation note Note Date & Type Note Facility Evaluation note No assessment information availa ble [facility] Work Phone: Hospital Discharge instructions Note Date & Type Note Facility Hospital Discharge instructions Additional Instructions 1. No driving if taking narcotic pain medication. 2. No lifting more than 20 pounds for 3 weeks. 3. After 2 days, can remove top dressing and may shower. [facility] Work Phone: Advance Directives No Advanced Directives Records Found Advance Directive Response Recorded Date/ Time Advance Directives No March 18 8:08am Chief Complaint and Reason for Visit Chief Complaint Positive Cologuard,F amily Hx Colon Ca Reason for Visit Family history of co jose alejandro cancer requiring screening colonoscopy Chief Complaint Hernia Chief Complaint Hernia Hernia Assessments Diagnosis Onset Date Resolution Status Family history of colon canc er requiring screening colonoscopy acute Family History No Family History Records Found Relationship Condition Age at Onset Recorded Date/T sterling Not Specified Diabetes mellitus Unknown Not Specified Malignant neoplasm of colon Unknown Relationship Condition Age at Onset Recorded Date/T sterling Not Specified Malignant neoplasm of colon Unknown father Diabetes mellitus Unknown brother Diabetes mellitus Unknown Not Specified Diabetes mellitus Unknown Relationship Condition Age at Onset Recorded Date/T sterling mother Malignant neoplasm of colon Unknown father Diabetes mellitus Unknown brother Diabetes mellitus Unknown paternal grandmother Diabetes mellitus Unknown Discharge Instructions Additional Instructions DISCHARGE INSTRUCTIONS FOR ENDOSCOPY FOR COLONOSCOPY: -Expect a gassy or full feeling after a colonoscopy. Report any NEW abdominal pain or vomiting. -Watch for rectal bleeding if you have a polyp removed. You may have oozing, but notify the doctor if you pass clots. FOR SEDATION FOR 24 HOURS: -NO driving -Do NOT operate machinery such as power tools, lawn mowers, snow blowers, sewing machines, etc. -Avoid alcoholic beverages and drugs for allergies, nerves, or sleep. -Do NOT stay alone. Do NOT leave your child unattended. -Do NOT make important personal or business decisions or sign any legal documents. -Eat solid foods and drink liquids in smaller amounts than usual until normal appetite returns. If you should experience an upset stomach, liquids high in sugar content (soda, Charles-aid, non-acid juices) are recommended. -You can resume normal activities tomorrow. FOLLOW UP Please call the office and make a follow up appointment to see me in [2] weeks. -Notify the doctor if you have any problems. -Office number [phone] Summary Purpose Additional Source Comments (unrecognized sect ion and content) No Status Records FoundNo Status Records FoundNo Status Records Found INFORMATION SOURCE (unrecogn ized section and content) DATE CREATED AUTHOR 09/11/2020 [facility] DATE CREATED AUTHOR AUTHOR'S ORGANIZ ATION 04/10/2024 [facility] EPIC DATE CREATED AUTHOR AUTHOR'S ORGANIZ ATION 04/17/2024 [facility] Care Teams (unrecognized sec tion and content) Team Status: Active Member Role Status Florentin Vincent MD Primary Care Provider Active Team Status: Inactive Member Role Status Florentin Vincent MD Primary Care Provider Active St art: March 22, 2024 End: March 22, 2024 Lenny Rod MD Attending Provider Active Sta rt: March 22, 2024 End: March 22, 2024 Team Status: Inactive Member Role Status Florentin Vincent MD Primary Care Provider Active St art: March 30, 2024 End: March 30, 2024 Lenny Rod MD Attending Provider Active Sta rt: March 30, 2024 End: March 30, 2024 Goals (unrecognized section and content) Goals may be documented in a n alternate section FOR RECORDS PERTAINING TO PATIENTS WHO ARE OR HAVE BEEN ENROLLED IN A CHEMICAL DEPENDENCY/SUBSTANCEABUSE PROGRAM, SOME INFORMATION MAY BE OMITTED. This clinical summary was aggregated from multiple sources. Caution should be exercised in using it in the provision of clinical care. This summary normalizes information from multiple sources, and as a consequence, information in this document may materially change the coding, format and clinical context of patient data. In addition, data may be omitted in some cases. CLINICAL DECISIONS SHOULD BE BASED ON THE PRIMARY CLINICAL RECORDS. [facility] provides no warranty or guarantee of the accuracy or completeness of information in this document.
[2024-05-08 12:17] LABS: Magnesium 2.1 mg/dL (1.8-2.4); Phosphorus 2.9 mg/dL (2.6-4.7); Thyroid Stimulating Hormone 1.434 uIU/mL (0.358-3.740)
== END 2024-05-08 10:18 | disposition home or self-care (01) ==
LOC: LAB 10:18
PROVIDERS: PCP Internal Medicine; Visit Provider Internal Medicine
DX: E83.51 Hypocalcemia (principal)
CPT/HCPCS: 36415; 82306; 82310; 83735; 83970; 84100; 84443